=== PATIENT | female | born 1935 | race Caucasian/White ===

== ENCOUNTER 2020-10-06 13:56 | Emergency (ER) | payer OTHER ==
[~2020-10-06] VITALS: Ht 154.9 cm; Wt 66.7 kg
[2020-10-06 14:14] LABS: ABSOLUTE BASOPHILS 0.1 thou/uL (0.0-0.2); ABSOLUTE EOSINOPHILS 0.2 thou/uL (0.0-0.7); ABSOLUTE LYMPHOCYTES 2.4 thou/uL (0.8-5.3); ABSOLUTE MONOCYTES 0.5 thou/uL (0.0-1.2); ABSOLUTE NEUTROPHILS 4.1 thou/uL (1.6-8.1); BASOPHILS 1.2 %; EOSINOPHILS 2.3 %; HEMATOCRIT 43.4 % (37.0-47.0); HEMOGLOBIN 14.1 gm/dL (12.0-15.0); LYMPHOCYTES 33.3 %; MCH 29.2 pg (26.0-34.0); MCHC 32.5 g/dL (28.0-37.0); MCV 89.8 fL (80.0-100.0); MONOCYTES 6.7 %; MPV 8.6 fl. (7.2-11.1); NUCLEATED RBCS 0 /100WBC; PLATELET COUNT* 319 thou/uL (150-400); POLYS 56.5 %; RBC 4.83 mil/uL (4.20-5.00); RDW-CV 17.3 % (10.5-14.5); WBC 7.3 thou/uL (4.0-11.0)
[2020-10-06 14:24] LABS: CALCIUM 9.8 mg/dL (8.5-10.1); CREATININE 0.9 mg/dL (0.6-1.3)
[2020-10-06 14:27] LABS: URINE BILIRUBIN NEGATIVE (Negative); URINE BLOOD NEGATIVE (Negative); URINE CLARITY CLEAR; URINE COLOR YELLOW; URINE GLUCOSE-RANDOM 2+ (Negative); URINE KETONES NEGATIVE (Negative); URINE LEUKOCYTES-REFLEX NEGATIVE (Negative); URINE NITRITE-REFLEX NEGATIVE (Negative); URINE PROTEIN NEGATIVE (Negative); URINE SPECIFIC GRAVITY 1.015 (1.005-1.030); URINE UROBILINOGEN 0.2 E.U./dl (0.2-1.0)
[2020-10-06 14:29] LABS: ALBUMIN 3.7 g/dL (3.4-5.0); TOTAL BILIRUBIN 0.5 mg/dL (<0.1-1.0); TOTAL PROTEIN 8.4 g/dL (6.4-8.2)
[2020-10-06 17:00] VITALS: BP 174/94
--- NOTE | 2020-10-07 10:48 | EKG ---
[place] [address] ELECTROCARDIOGRAM REPORT Name: ELIDIA KANG Room: [facility]#: [id number] Admission: 10/06/20 Attend Phys: Discharge: 10/06/20 Date of : 37 Date of Service: 10/06/20 1402 Report #: [id number] THIS REPORT FOR: //name// [facility] ED Test Date: 2020-10-06 Test Time: 14:02:42 Pat Name: ELIDIA KANG Department: Room: Gender: Cord Cutter: MEDIC STUDENT : 1935 Requested By: Bee Ramos Order Number: [id number] Reading MD: Deven Frias Measurements Intervals [place] Rate: 84 P: MA: 184 QRS: -13 QRSD: 106 T: 115 QT: 410 QTc: 485 Interpretive Statements Atrial-paced rhythm LVH with secondary repolarization abnormality Inferior infarct, old No previous ECG available for comparison Electronically Signed On 10-07-2020 10:48:13 CDT by Deven Frias [email or web address] <ELECTRONICALLY SIGNED> By: Juliana Frias MD, [facility] 10/07/20 1048 1402 1402 Juliana Frias MD, [facility] /EPI
== END 2020-10-06 17:01 | disposition home or self-care (01) ==
LOC: M.ERS 13:56
PROVIDERS: Physician Assistant
DX: R10.84 Generalized abdominal pain (principal); M19.90 Unspecified osteoarthritis, unspecified site; M79.7 Fibromyalgia; E78.00 Pure hypercholesterolemia, unspecified; Z90.710 Acquired absence of both cervix and uterus; Z90.49 Acquired absence of other specified parts of digestive tract; Z80.0 Family history of malignant neoplasm of digestive organs; Z88.1 Allergy status to other antibiotic agents; Z88.6 Allergy status to analgesic agent